=== PATIENT | female | born 1980 | race African-American/Black ===

== ENCOUNTER 2022-07-22 14:55 | Inpatient (IN) | payer OTHER ==
[2022-07-22] MEDS ORDERED: FOLIC ACID INJECTION - 1 MG, THIAMINE HCL 100 MG, MULTIVIT INJECTION ADULT 10 ML in SOD... IVPB ONE (16:18)
[2022-07-22] MEDS ORDERED: LACTATED RINGERS SOLUTION 1000 ML INFUS.BAG IV ONE (16:25)
[2022-07-22 17:14] LABS: VENOUS BASE EXCESS 3.4 mmol/L (-2-2); VENOUS O2 SATURATION 53.8 % (70-80); VENOUS PCO2 49.7 mmHg (38-52); VENOUS PH 7.385 (7.310-7.410)
[2022-07-22 17:32] LABS: BASO % 0.8 % (0-2.0); EOS % 0.4 % (0-4.5); HEMATOCRIT 24.5 % (32.4-45.2); HEMOGLOBIN 8.1 GM/dL (10.7-15.3); LYMPH % 50.4 % (8-40); MCH 27.6 pg (25.7-33.7); MCHC 33.2 g/dl (32.0-36.0); MEAN CELL VOLUME 83.3 fl (80-96); MEAN PLT VOLUME 7.7 fl (7.5-11.1); MONO % 7.2 % (3.8-10.2); NEUT % 41.2 % (42.8-82.8); PLATELET COUNT 254 10^3/uL (134-434); RBC 2.94 M/mm3 (3.60-5.2); RDW 24.3 % (11.6-15.6); WHITE BLOOD COUNT 6.1 K/mm3 (4.0-10.0)
[2022-07-22 17:59] LABS: ACTIVATED PTT 34.5 SECONDS (25.2-36.5); CHLORIDE 97 mmol/L (98-107); INR 1.09 (0.83-1.09); PROTHROMBIN TIME (PATIENT) 12.5 SEC (9.7-13.0); SODIUM 140 mmol/L (136-145)
[2022-07-22 18:01] LABS: CALCIUM 7.9 mg/dL (8.5-10.1)
[2022-07-22 18:02] LABS: ALBUMIN 2.6 g/dl (3.4-5.0); ANION GAP 14 MMOL/L (8-16); CO2 29 mmol/L (21-32); GLUCOSE,RANDOM 93 mg/dL (74-106); MAGNESIUM 1.6 mg/dL (1.8-2.4)
[2022-07-22 18:04] LABS: SGPT/ALT 51 U/L (13-61)
[2022-07-22 18:05] LABS: CREATININE 0.5 mg/dL (0.55-1.3); SGOT/AST 213 U/L (15-37)
[2022-07-22 18:06] LABS: BILIRUBIN,TOTAL 0.6 mg/dL (0.2-1)
[2022-07-22 18:08] LABS: ALK PHOS 138 U/L (45-117)
[2022-07-22] MEDS ORDERED: POTASSIUM CHLORIDE TABS 20 MEQ TABLET.ER (FP) PO ONE ×2 (18:09→18:34)
[2022-07-22] MEDS ORDERED: MAGNESIUM SULF 50% (8.12 MEQ/2 ML-1 GM VIAL) IVPB ONE (18:14)
[2022-07-22] MEDS ORDERED: MAGNESIUM SULF 50% (8.12 MEQ/2 ML-1 GM VIAL) ONE (18:29)
[2022-07-22 18:32] LABS: BLOOD UREA NITROGEN 1.7 mg/dL (7-18)
[2022-07-23 00:04] LABS: RETICULOCYTES 2.98 % (0.5-1.5)
[2022-07-23 00:39] LABS: IRON SERUM 28 ug/dL (50-175); TOTAL IRON BINDING CAPACITY 266 ug/dL (250-450)
[2022-07-23 01:55] VITALS: BMI 16.5
[2022-07-23] MEDS ORDERED: IRON SUCROSE INJECTION 500 MG in SODIUM CHLORIDE 225 ML IVPB ONE (01:59)
[2022-07-23] MEDS ORDERED: IRON SUCROSE INJECTION 300 MG in SODIUM CHLORIDE 235 ML IVPB ONE (02:45)
[2022-07-23] MEDS ORDERED: SERTRALINE HCL 50 MG TABLET (FP) PO ONE (03:03)
[2022-07-23] MEDS ORDERED: MAGNESIUM 2GM/50ML STERILE WATER IVPB IVPB ONE (03:21)
[2022-07-23] MEDS ORDERED: POTASSIUM CHLORIDE ORAL LIQUID 20 MEQ/15 ML PO ONE (03:26)
[2022-07-23] MEDS ORDERED: LORazepam 1 MG TABLET PO PRN (03:27)
[2022-07-23] MEDS ORDERED: FOLIC ACID INJECTION - 1 MG, THIAMINE HCL 100 MG, MULTIVIT INJECTION ADULT 10 ML in SOD... IVPB ONE (03:29)
[2022-07-23] MEDS: LORazepam 1 MG TABLET PO SCH ×2 (04:53→10:12)
[2022-07-23] MEDS: INSULIN SLIDING SCALE (NOVOLOG) 1 VIAL SQ SCH ×4 (06:00→22:05)
[2022-07-23] MEDS ORDERED: INSULIN SLIDING SCALE (NOVOLOG) 1 VIAL SQ SCH (07:00)
[2022-07-23] MEDS ORDERED: THIAMINE HCL 100 MG TABLET (FP) PO SCH (10:00)
[2022-07-23] MEDS: ENOXAPARIN NA (PORCINE) 40 MG/0.4 ML DISP.SYRIN SQ SCH (10:11)
[2022-07-23] MEDS: NICOTINE 7 MG/24 HOURS TOPICAL PATCH TD SCH ×2 (10:12→10:16)
[2022-07-23] MEDS: levETIRAcetam 500 MG TABLET (FP) PO SCH ×2 (10:12→22:04)
[2022-07-23] MEDS: FOLIC ACID 1 MG TABLET (FP) PO SCH (10:12)
[2022-07-23 10:35] LABS: BASO % 1.2 % (0-2.0); EOS % 0.5 % (0-4.5); HEMATOCRIT 20.9 % (32.4-45.2); LYMPH % 22.7 % (8-40); MCH 27.1 pg (25.7-33.7); MCHC 32.3 g/dl (32.0-36.0); MEAN CELL VOLUME 83.9 fl (80-96); NEUT % 67.6 % (42.8-82.8); PLATELET COUNT 195 10^3/uL (134-434); WHITE BLOOD COUNT 4.5 K/mm3 (4.0-10.0)
[2022-07-23 10:48] LABS: CHLORIDE 106 mmol/L (98-107); SODIUM 141 mmol/L (136-145)
[2022-07-23 10:50] LABS: ANION GAP 9 MMOL/L (8-16); CALCIUM 7.5 mg/dL (8.5-10.1); CO2 26 mmol/L (21-32)
[2022-07-23 10:51] LABS: ALBUMIN 2.4 g/dl (3.4-5.0); GLUCOSE,RANDOM 84 mg/dL (74-106); MAGNESIUM 2.3 mg/dL (1.8-2.4)
[2022-07-23 10:53] LABS: SGPT/ALT 45 U/L (13-61)
[2022-07-23 10:54] LABS: CREATININE 0.3 mg/dL (0.55-1.3); HEMOGLOBIN 6.8 GM/dL (10.7-15.3)
[2022-07-23 10:55] LABS: BILIRUBIN,TOTAL 1.4 mg/dL (0.2-1); PHOSPHOROUS 2.6 mg/dL (2.5-4.9); SGOT/AST 213 U/L (15-37)
[2022-07-23 10:56] LABS: ALK PHOS 139 U/L (45-117)
[2022-07-23 10:57] LABS: BLOOD UREA NITROGEN 1.3 mg/dL (7-18)
[2022-07-23] MEDS: THIAMINE HCL 200 MG/2 ML VIAL IVPB SCH ×2 (12:48→22:04)
[2022-07-23] MEDS: DEXTROSE 5%-0.45% SALINE 1,000 ML IV SCH (17:36)
[2022-07-23 21:36] LABS: HEMOGLOBIN 8.8 GM/dL (10.7-15.3); MCH 27.6 pg (25.7-33.7); MEAN CELL VOLUME 83.5 fl (80-96); MEAN PLT VOLUME 7.9 fl (7.5-11.1); PLATELET COUNT 188 10^3/uL (134-434); RBC 3.17 M/mm3 (3.60-5.2); RDW 20.7 % (11.6-15.6)
[2022-07-23 21:38] LABS: HEMATOCRIT 26.5 % (32.4-45.2)
[2022-07-23] MEDS: SERTRALINE HCL 50 MG TABLET (FP) PO SCH (22:04)
[2022-07-24] MEDS ORDERED: LORazepam 1 MG TABLET PO SCH (05:00)
[2022-07-24] MEDS: INSULIN SLIDING SCALE (NOVOLOG) 1 VIAL SQ SCH ×4 (06:32→23:15)
[2022-07-24] MEDS: THIAMINE HCL 200 MG/2 ML VIAL IVPB SCH ×3 (06:32→22:15)
[2022-07-24] MEDS: FOLIC ACID 1 MG TABLET (FP) PO SCH (11:02)
[2022-07-24] MEDS: levETIRAcetam 500 MG TABLET (FP) PO SCH ×2 (11:02→22:41)
[2022-07-24] MEDS: MULTIVITAMINS (DAILY MVI) TABLET (FP) PO SCH (11:03)
[2022-07-24] MEDS: NICOTINE 7 MG/24 HOURS TOPICAL PATCH TD SCH (11:03)
[2022-07-24 14:20] LABS: HEMATOCRIT 28.3 % (32.4-45.2); HEMOGLOBIN 9.4 GM/dL (10.7-15.3); MCHC 33.3 g/dl (32.0-36.0); MEAN CELL VOLUME 84.1 fl (80-96); MEAN PLT VOLUME 8.3 fl (7.5-11.1); PLATELET COUNT 199 10^3/uL (134-434); RBC 3.37 M/mm3 (3.60-5.2); RDW 21.2 % (11.6-15.6); WHITE BLOOD COUNT 5.4 K/mm3 (4.0-10.0)
[2022-07-24 14:47] LABS: CHLORIDE 102 mmol/L (98-107); SODIUM 138 mmol/L (136-145)
[2022-07-24 14:50] LABS: BLOOD UREA NITROGEN < 1.0 mg/dL (7-18)
[2022-07-24 14:51] LABS: ANION GAP 10 MMOL/L (8-16); CO2 26 mmol/L (21-32); GLUCOSE,RANDOM 101 mg/dL (74-106)
[2022-07-24 14:52] LABS: ALBUMIN 2.3 g/dl (3.4-5.0); CALCIUM 7.5 mg/dL (8.5-10.1)
[2022-07-24 14:53] LABS: MAGNESIUM 1.3 mg/dL (1.8-2.4)
[2022-07-24 14:54] LABS: CREATININE 0.3 mg/dL (0.55-1.3); PHOSPHOROUS 1.8 mg/dL (2.5-4.9)
[2022-07-24 14:55] LABS: BILIRUBIN,DIRECT 0.4 mg/dL (0.0-0.2)
[2022-07-24 14:57] LABS: BILIRUBIN,TOTAL 1.6 mg/dL (0.2-1)
[2022-07-24] MEDS ORDERED: POTASSIUM CHLORIDE TABS 20 MEQ TABLET.ER (FP) PO ONE (15:04)
[2022-07-24] MEDS ORDERED: MAGNESIUM OXIDE 400 MG TABLET (FP) PO ONE (15:05)
[2022-07-24] MEDS: POTASSIUM PHOSPHATE 30 MM in SODIUM CHLORIDE 500 ML IVPB ONE ×2 (16:44→17:03)
[2022-07-24] MEDS: DEXTROSE 5%-0.45% SALINE 1,000 ML IV SCH (17:09)
[2022-07-24] MEDS ORDERED: ACETAMINOPHEN 1000 MG/100 ML BAG IVPB ONE (22:22)
[2022-07-24] MEDS: SERTRALINE HCL 50 MG TABLET (FP) PO SCH (22:41)
[2022-07-24 23:54] LABS: CHLORIDE 102 mmol/L (98-107); SODIUM 138 mmol/L (136-145)
[2022-07-24 23:56] LABS: GLUCOSE,RANDOM 92 mg/dL (74-106)
[2022-07-24 23:57] LABS: ALBUMIN 2.2 g/dl (3.4-5.0); BLOOD UREA NITROGEN < 1.0 mg/dL (7-18); CALCIUM 7.2 mg/dL (8.5-10.1); CO2 27 mmol/L (21-32); MAGNESIUM 1.2 mg/dL (1.8-2.4)
[2022-07-25] LABS: CREATININE 0.3 mg/dL (0.55-1.3); PHOSPHOROUS 2.5 mg/dL (2.5-4.9); SGOT/AST 150 U/L (15-37); SGPT/ALT 40 U/L (13-61)
[2022-07-25] MEDS ORDERED: LORazepam 0.5 MG TABLET PO PRN ×2
[2022-07-25 00:02] LABS: BILIRUBIN,TOTAL 1.4 mg/dL (0.2-1); TOT PROT 5.8 g/dl (6.4-8.2)
[2022-07-25 00:03] LABS: ALK PHOS 135 U/L (45-117)
[2022-07-25 00:20] LABS: ANION GAP 9 MMOL/L (8-16)
[2022-07-25] MEDS ORDERED: POTASSIUM CHLORIDE ORAL LIQUID 20 MEQ/15 ML PO ONE (00:36)
[2022-07-25] MEDS ORDERED: POTASSIUM CHLORIDE TABS 20 MEQ TABLET.ER (FP) PO ONE (00:36)
[2022-07-25] MEDS: MAGNESIUM SULFATE IN WATER 2 GM/50 ML IVPB IVPB SCH ×4 (00:54→13:56)
[2022-07-25] MEDS ORDERED: POTASSIUM PHOSPHATE 30 MM in SODIUM CHLORIDE 500 ML IVPB ONE (02:44)
[2022-07-25] MEDS ORDERED: LORazepam 0.5 MG TABLET PO SCH (05:00)
[2022-07-25] MEDS: THIAMINE HCL 200 MG/2 ML VIAL IVPB SCH ×3 (05:25→21:44)
[2022-07-25] MEDS: INSULIN SLIDING SCALE (NOVOLOG) 1 VIAL SQ SCH ×4 (06:31→22:26)
[2022-07-25] MEDS ORDERED: KCL 10 MEQ IVPB 10 MEQ/100 ML INFUS.BAG IVPB SCH (08:00)
[2022-07-25] MEDS: ENOXAPARIN NA (PORCINE) 40 MG/0.4 ML DISP.SYRIN SQ SCH (11:34)
[2022-07-25] MEDS: FOLIC ACID 1 MG TABLET (FP) PO SCH (11:35)
[2022-07-25] MEDS: MULTIVITAMINS (DAILY MVI) TABLET (FP) PO SCH (11:35)
[2022-07-25] MEDS: NICOTINE 7 MG/24 HOURS TOPICAL PATCH TD SCH (11:35)
[2022-07-25] MEDS: levETIRAcetam 500 MG TABLET (FP) PO SCH ×2 (11:35→21:43)
[2022-07-25 12:21] LABS: CHLORIDE 108 mmol/L (98-107); SODIUM 140 mmol/L (136-145)
[2022-07-25 12:30] LABS: ALBUMIN 1.9 g/dl (3.4-5.0); ANION GAP 9 MMOL/L (8-16); BLOOD UREA NITROGEN < 1.0 mg/dL (7-18); CO2 23 mmol/L (21-32); MAGNESIUM 2.2 mg/dL (1.8-2.4)
[2022-07-25 12:31] LABS: GLUCOSE,RANDOM 106 mg/dL (74-106)
[2022-07-25 12:32] LABS: SGPT/ALT 38 U/L (13-61)
[2022-07-25 12:33] LABS: CREATININE 0.3 mg/dL (0.55-1.3); SGOT/AST 134 U/L (15-37)
[2022-07-25 12:34] LABS: BILIRUBIN,TOTAL 0.9 mg/dL (0.2-1); TOT PROT 5.3 g/dl (6.4-8.2)
[2022-07-25 12:36] LABS: ALK PHOS 119 U/L (45-117)
[2022-07-25 12:41] LABS: HEMATOCRIT 23.3 % (32.4-45.2); HEMOGLOBIN 7.9 GM/dL (10.7-15.3); MCH 28.5 pg (25.7-33.7); MCHC 34.1 g/dl (32.0-36.0); MEAN CELL VOLUME 83.8 fl (80-96); MEAN PLT VOLUME 7.9 fl (7.5-11.1); PLATELET COUNT 194 10^3/uL (134-434); RBC 2.78 M/mm3 (3.60-5.2); RDW 21.7 % (11.6-15.6); WHITE BLOOD COUNT 4.6 K/mm3 (4.0-10.0)
[2022-07-25] MEDS: DEXTROSE 5%-0.45% SALINE 1,000 ML IV SCH (14:05)
[2022-07-25 19:50] LABS: CHLORIDE 105 mmol/L (98-107); SODIUM 138 mmol/L (136-145)
[2022-07-25 19:51] LABS: CALCIUM 7.5 mg/dL (8.5-10.1)
[2022-07-25 19:52] LABS: ANION GAP 10 MMOL/L (8-16); BLOOD UREA NITROGEN < 1.0 mg/dL (7-18); CO2 23 mmol/L (21-32)
[2022-07-25 19:53] LABS: GLUCOSE,RANDOM 85 mg/dL (74-106); MAGNESIUM 2.3 mg/dL (1.8-2.4)
[2022-07-25 19:55] LABS: PHOSPHOROUS 2.6 mg/dL (2.5-4.9)
[2022-07-25 19:56] LABS: CREATININE 0.3 mg/dL (0.55-1.3)
[2022-07-25] MEDS: SERTRALINE HCL 50 MG TABLET (FP) PO SCH (21:43)
[2022-07-26] MEDS ORDERED: LORazepam 0.5 MG TABLET PO ONE (05:00)
[2022-07-26] MEDS: THIAMINE HCL 200 MG/2 ML VIAL IVPB SCH ×2 (05:28→15:04)
[2022-07-26] MEDS: INSULIN SLIDING SCALE (NOVOLOG) 1 VIAL SQ SCH ×4 (06:14→22:18)
[2022-07-26 09:29] LABS: BASO % 0.7 % (0-2.0); EOS % 0.8 % (0-4.5); HEMATOCRIT 23.3 % (32.4-45.2); HEMOGLOBIN 7.9 GM/dL (10.7-15.3); LYMPH % 27.9 % (8-40); MCH 28.7 pg (25.7-33.7); MCHC 33.8 g/dl (32.0-36.0); MEAN CELL VOLUME 84.9 fl (80-96); MEAN PLT VOLUME 7.7 fl (7.5-11.1); MONO % 8.2 % (3.8-10.2); NEUT % 62.4 % (42.8-82.8); PLATELET COUNT 200 10^3/uL (134-434); RBC 2.74 M/mm3 (3.60-5.2); RDW 22.1 % (11.6-15.6); WHITE BLOOD COUNT 4.7 K/mm3 (4.0-10.0)
[2022-07-26 09:49] LABS: CHLORIDE 104 mmol/L (98-107); SODIUM 138 mmol/L (136-145)
[2022-07-26 10:00] LABS: CALCIUM 7.5 mg/dL (8.5-10.1)
[2022-07-26 10:01] LABS: ANION GAP 9 MMOL/L (8-16); BLOOD UREA NITROGEN < 1.0 mg/dL (7-18); CO2 26 mmol/L (21-32); GLUCOSE,RANDOM 86 mg/dL (74-106); MAGNESIUM 1.8 mg/dL (1.8-2.4)
[2022-07-26 10:04] LABS: CREATININE 0.3 mg/dL (0.55-1.3); PHOSPHOROUS 2.5 mg/dL (2.5-4.9)
[2022-07-26 10:26] LABS: ANISOCYTOSIS 0; MACROCYTOSIS 0; TARGET CELLS 1+
[2022-07-26] MEDS: FOLIC ACID 1 MG TABLET (FP) PO SCH (11:08)
[2022-07-26] MEDS: levETIRAcetam 500 MG TABLET (FP) PO SCH ×2 (11:08→22:12)
[2022-07-26] MEDS: MULTIVITAMINS (DAILY MVI) TABLET (FP) PO SCH (11:08)
[2022-07-26] MEDS: NICOTINE 7 MG/24 HOURS TOPICAL PATCH TD SCH (11:08)
[2022-07-26] MEDS: ENOXAPARIN NA (PORCINE) 40 MG/0.4 ML DISP.SYRIN SQ SCH (11:08)
[2022-07-26] MEDS: DEXTROSE 5%-0.45% SALINE 1,000 ML IV SCH (12:03)
[2022-07-26] MEDS ORDERED: MAGNESIUM SULF 50% (8.12 MEQ/2 ML-1 GM VIAL) IVPB ONE ×2 (12:40→15:45)
[2022-07-26] MEDS ORDERED: POTASSIUM PHOSPHATE 30 MM in DEXTROSE 5%-WATER - 500 ML IVPB ONE (13:15)
[2022-07-26] MEDS ORDERED: INSULIN (NOVOLOG) ASPART 100 UNITS/ML 10ML VIAL ONE (17:59)
[2022-07-26] MEDS: SERTRALINE HCL 50 MG TABLET (FP) PO SCH (22:12)
[2022-07-26] MEDS: BANATROL PLUS POWDER PACKET PO SCH (22:12)
[2022-07-26 23:29] LABS: CHLORIDE 105 mmol/L (98-107); SODIUM 138 mmol/L (136-145)
[2022-07-26 23:32] LABS: ANION GAP 11 MMOL/L (8-16); BLOOD UREA NITROGEN < 1.0 mg/dL (7-18); CALCIUM 7.6 mg/dL (8.5-10.1); CO2 23 mmol/L (21-32)
[2022-07-26 23:33] LABS: GLUCOSE,RANDOM 102 mg/dL (74-106)
[2022-07-26 23:36] LABS: CREATININE 0.3 mg/dL (0.55-1.3); PHOSPHOROUS 3.9 mg/dL (2.5-4.9)
[2022-07-27] MEDS: BANATROL PLUS POWDER PACKET PO SCH ×3 (05:56→22:22)
[2022-07-27] MEDS: DEXTROSE 5%-0.45% SALINE 1,000 ML IV SCH ×3 (05:56→22:27)
[2022-07-27] MEDS: INSULIN SLIDING SCALE (NOVOLOG) 1 VIAL SQ SCH ×4 (06:14→22:23)
[2022-07-27 08:08] LABS: EOS % 0.8 % (0-4.5); HEMATOCRIT 22.7 % (32.4-45.2); HEMOGLOBIN 7.6 GM/dL (10.7-15.3); LYMPH % 24.9 % (8-40); MCH 28.3 pg (25.7-33.7); MCHC 33.6 g/dl (32.0-36.0); MEAN CELL VOLUME 84.4 fl (80-96); MEAN PLT VOLUME 8.1 fl (7.5-11.1); MONO % 8.6 % (3.8-10.2); NEUT % 64.7 % (42.8-82.8); PLATELET COUNT 219 10^3/uL (134-434); RBC 2.69 M/mm3 (3.60-5.2); RDW 22.8 % (11.6-15.6); WHITE BLOOD COUNT 4.5 K/mm3 (4.0-10.0)
[2022-07-27 08:17] LABS: CHLORIDE 106 mmol/L (98-107); SODIUM 139 mmol/L (136-145)
[2022-07-27 08:19] LABS: ANION GAP 8 MMOL/L (8-16); BLOOD UREA NITROGEN < 1.0 mg/dL (7-18); CALCIUM 7.8 mg/dL (8.5-10.1); CO2 25 mmol/L (21-32); GLUCOSE,RANDOM 106 mg/dL (74-106); MAGNESIUM 1.5 mg/dL (1.8-2.4)
[2022-07-27 08:22] LABS: CREATININE 0.3 mg/dL (0.55-1.3)
[2022-07-27 08:23] LABS: PHOSPHOROUS 3.1 mg/dL (2.5-4.9)
[2022-07-27] MEDS ORDERED: INSULIN (NOVOLOG) ASPART 100 UNITS/ML 10ML VIAL ONE (09:04)
[2022-07-27] MEDS: ENOXAPARIN NA (PORCINE) 40 MG/0.4 ML DISP.SYRIN SQ SCH (10:01)
[2022-07-27] MEDS: FOLIC ACID 1 MG TABLET (FP) PO SCH (10:01)
[2022-07-27] MEDS: THIAMINE HCL 200 MG/2 ML VIAL IVPB SCH (10:02)
[2022-07-27] MEDS: levETIRAcetam 500 MG TABLET (FP) PO SCH ×2 (10:02→22:22)
[2022-07-27] MEDS: MULTIVITAMINS (DAILY MVI) TABLET (FP) PO SCH (10:02)
[2022-07-27] MEDS: NICOTINE 7 MG/24 HOURS TOPICAL PATCH TD SCH (10:02)
[2022-07-27] MEDS ORDERED: MAGNESIUM SULFATE IN WATER 2 GM/50 ML IVPB IVPB ONE (12:00)
[2022-07-27 18:16] LABS: BASO % 0.7 % (0-2.0); EOS % 0.3 % (0-4.5); HEMATOCRIT 23.6 % (32.4-45.2); HEMOGLOBIN 7.9 GM/dL (10.7-15.3); MCH 28.7 pg (25.7-33.7); MCHC 33.6 g/dl (32.0-36.0); MEAN CELL VOLUME 85.5 fl (80-96); MEAN PLT VOLUME 7.2 fl (7.5-11.1); MONO % 9.4 % (3.8-10.2); NEUT % 62.6 % (42.8-82.8); PLATELET COUNT 222 10^3/uL (134-434); RBC 2.76 M/mm3 (3.60-5.2); RDW 22.8 % (11.6-15.6); WHITE BLOOD COUNT 4.4 K/mm3 (4.0-10.0)
[2022-07-27 18:18] LABS: PH,URINE 6.5 (5.0-8.0); URINE APPEARANCE CLEAR; URINE BILIRUBIN NEGATIVE (NEGATIVE); URINE COLOR YELLOW; URINE GLUCOSE (UA) NEGATIVE (NEGATIVE); URINE KETONE NEGATIVE (NEGATIVE); URINE LEUK ESTERASE NEGATIVE (NEGATIVE); URINE NITRITE NEGATIVE (NEGATIVE); URINE PROTEIN NEGATIVE (NEGATIVE); URINE UROBILINOGEN 0.2 mg/dL (0.2-1.0)
[2022-07-27 18:33] LABS: CHLORIDE 104 mmol/L (98-107); SODIUM 138 mmol/L (136-145)
[2022-07-27 18:34] LABS: CALCIUM 8.1 mg/dL (8.5-10.1)
[2022-07-27 18:35] LABS: ANION GAP 10 MMOL/L (8-16); BLOOD UREA NITROGEN < 1.0 mg/dL (7-18); CO2 24 mmol/L (21-32); GLUCOSE,RANDOM 103 mg/dL (74-106)
[2022-07-27 18:38] LABS: CREATININE 0.3 mg/dL (0.55-1.3); PHOSPHOROUS 2.4 mg/dL (2.5-4.9)
[2022-07-27] MEDS ORDERED: POTASSIUM PHOSPHATE 30 MM in DEXTROSE 5%-WATER - 500 ML IVPB ONE (19:44)
[2022-07-27] MEDS: SERTRALINE HCL 50 MG TABLET (FP) PO SCH (22:22)
[2022-07-28] MEDS: BANATROL PLUS POWDER PACKET PO SCH ×3 (05:26→21:25)
[2022-07-28] MEDS: INSULIN SLIDING SCALE (NOVOLOG) 1 VIAL SQ SCH ×4 (06:11→21:24)
[2022-07-28 09:07] LABS: BASO % 0.7 % (0-2.0); EOS % 0.8 % (0-4.5); HEMATOCRIT 23.3 % (32.4-45.2); HEMOGLOBIN 7.9 GM/dL (10.7-15.3); LYMPH % 20.5 % (8-40); MCHC 33.8 g/dl (32.0-36.0); MEAN CELL VOLUME 85.7 fl (80-96); MEAN PLT VOLUME 7.6 fl (7.5-11.1); PLATELET COUNT 229 10^3/uL (134-434); RBC 2.72 M/mm3 (3.60-5.2); RDW 23.4 % (11.6-15.6)
[2022-07-28 09:40] LABS: CHLORIDE 104 mmol/L (98-107); SODIUM 139 mmol/L (136-145)
[2022-07-28 09:43] LABS: ANION GAP 10 MMOL/L (8-16); BLOOD UREA NITROGEN < 1.0 mg/dL (7-18); CALCIUM 7.8 mg/dL (8.5-10.1); CO2 26 mmol/L (21-32); GLUCOSE,RANDOM 111 mg/dL (74-106)
[2022-07-28 09:44] LABS: MAGNESIUM 1.5 mg/dL (1.8-2.4)
[2022-07-28 09:47] LABS: CREATININE 0.3 mg/dL (0.55-1.3)
[2022-07-28] MEDS: ENOXAPARIN NA (PORCINE) 40 MG/0.4 ML DISP.SYRIN SQ SCH (10:31)
[2022-07-28] MEDS: MULTIVITAMINS (DAILY MVI) TABLET (FP) PO SCH (10:32)
[2022-07-28] MEDS: THIAMINE HCL 200 MG/2 ML VIAL IVPB SCH (10:32)
[2022-07-28] MEDS: NICOTINE 7 MG/24 HOURS TOPICAL PATCH TD SCH ×2 (10:32→10:43)
[2022-07-28] MEDS: levETIRAcetam 500 MG TABLET (FP) PO SCH ×2 (10:32→21:25)
[2022-07-28] MEDS: FOLIC ACID 1 MG TABLET (FP) PO SCH (10:32)
[2022-07-28] MEDS ORDERED: POTASSIUM CHLORIDE TABS 20 MEQ TABLET.ER (FP) PO ONE (14:07)
[2022-07-28] MEDS ORDERED: MAGNESIUM SULF 50% (8.12 MEQ/2 ML-1 GM VIAL) IVPB ONE (14:08)
[2022-07-28] MEDS: AMINO ACIDS 4.25%/D5W 1,000 ML IV SCH (16:02)
[2022-07-28 18:51] LABS: CHLORIDE 104 mmol/L (98-107); SODIUM 138 mmol/L (136-145)
[2022-07-28 18:52] LABS: CALCIUM 7.9 mg/dL (8.5-10.1)
[2022-07-28 18:54] LABS: ANION GAP 9 MMOL/L (8-16); BLOOD UREA NITROGEN < 1.0 mg/dL (7-18); CO2 25 mmol/L (21-32); GLUCOSE,RANDOM 110 mg/dL (74-106); MAGNESIUM 2.2 mg/dL (1.8-2.4)
[2022-07-28 18:56] LABS: CREATININE 0.4 mg/dL (0.55-1.3); PHOSPHOROUS 2.3 mg/dL (2.5-4.9)
[2022-07-28] MEDS: SERTRALINE HCL 50 MG TABLET (FP) PO SCH (21:25)
[2022-07-29] MEDS: AMINO ACIDS 4.25%/D5W 1,000 ML IV SCH ×3 (02:40→17:04)
[2022-07-29] MEDS: BANATROL PLUS POWDER PACKET PO SCH ×3 (06:17→22:04)
[2022-07-29] MEDS: INSULIN SLIDING SCALE (NOVOLOG) 1 VIAL SQ SCH ×4 (06:47→22:05)
[2022-07-29] MEDS ORDERED: POTASSIUM PHOSPHATE 30 MM in DEXTROSE 5%-WATER - 500 ML IVPB ONE ×2 (07:51→13:30)
[2022-07-29] MEDS ORDERED: IRON SUCROSE INJECTION 200 MG in SODIUM CHLORIDE 90 ML IVPB ONE (08:00)
[2022-07-29 09:32] LABS: BASO % 1.4 % (0-2.0); EOS % 1.3 % (0-4.5); HEMATOCRIT 23.9 % (32.4-45.2); HEMOGLOBIN 8.1 GM/dL (10.7-15.3); LYMPH % 23.5 % (8-40); MCH 29.3 pg (25.7-33.7); MCHC 33.9 g/dl (32.0-36.0); MEAN CELL VOLUME 86.4 fl (80-96); MEAN PLT VOLUME 7.7 fl (7.5-11.1); MONO % 12.9 % (3.8-10.2); NEUT % 60.9 % (42.8-82.8); PLATELET COUNT 254 10^3/uL (134-434); RBC 2.76 M/mm3 (3.60-5.2); RDW 23.1 % (11.6-15.6); WHITE BLOOD COUNT 4.8 K/mm3 (4.0-10.0)
[2022-07-29 09:35] LABS: CHLORIDE 105 mmol/L (98-107); SODIUM 138 mmol/L (136-145)
[2022-07-29 09:44] LABS: ANION GAP 7 MMOL/L (8-16); CO2 25 mmol/L (21-32); GLUCOSE,RANDOM 110 mg/dL (74-106); MAGNESIUM 1.5 mg/dL (1.8-2.4)
[2022-07-29 09:46] LABS: PHOSPHOROUS 2.2 mg/dL (2.5-4.9)
[2022-07-29 09:47] LABS: CREATININE 0.3 mg/dL (0.55-1.3)
[2022-07-29 09:53] LABS: BLOOD UREA NITROGEN 1.9 mg/dL (7-18)
[2022-07-29] MEDS: ENOXAPARIN NA (PORCINE) 40 MG/0.4 ML DISP.SYRIN SQ SCH (10:02)
[2022-07-29] MEDS: NICOTINE 7 MG/24 HOURS TOPICAL PATCH TD SCH (10:03)
[2022-07-29] MEDS: FOLIC ACID 1 MG TABLET (FP) PO SCH (10:03)
[2022-07-29] MEDS: levETIRAcetam 500 MG TABLET (FP) PO SCH ×2 (10:03→22:05)
[2022-07-29] MEDS: MULTIVITAMINS (DAILY MVI) TABLET (FP) PO SCH (10:03)
[2022-07-29] MEDS: THIAMINE HCL 200 MG/2 ML VIAL IVPB SCH (10:04)
[2022-07-29 10:24] LABS: ANISOCYTOSIS 2+; MACROCYTOSIS 0; OVALOCYTE 1+
[2022-07-29] MEDS ORDERED: MAGNESIUM SULF 50% (8.12 MEQ/2 ML-1 GM VIAL) IVPB ONE ×2 (12:50→13:30)
[2022-07-29] MEDS ORDERED: POTASSIUM PHOSPHATE 30 MM in SODIUM CHLORIDE 500 ML IVPB ONE (12:50)
[2022-07-29] MEDS ORDERED: INSULIN (NOVOLOG) ASPART 100 UNITS/ML 10ML VIAL ONE (21:26)
[2022-07-29] MEDS: SERTRALINE HCL 50 MG TABLET (FP) PO SCH (22:05)
[2022-07-30] MEDS: BANATROL PLUS POWDER PACKET PO SCH ×3 (06:18→21:56)
[2022-07-30] MEDS: INSULIN SLIDING SCALE (NOVOLOG) 1 VIAL SQ SCH ×4 (06:19→22:24)
[2022-07-30] MEDS: AMINO ACIDS 4.25%/D5W 1,000 ML IV SCH ×2 (07:14→21:56)
[2022-07-30 09:10] LABS: BASO % 0.6 % (0-2.0); EOS % 0.8 % (0-4.5); HEMATOCRIT 23.6 % (32.4-45.2); HEMOGLOBIN 7.7 GM/dL (10.7-15.3); LYMPH % 24.2 % (8-40); MCH 28.4 pg (25.7-33.7); MCHC 32.9 g/dl (32.0-36.0); MEAN CELL VOLUME 86.3 fl (80-96); MEAN PLT VOLUME 8.3 fl (7.5-11.1); MONO % 11.4 % (3.8-10.2); PLATELET COUNT 294 10^3/uL (134-434); RBC 2.73 M/mm3 (3.60-5.2); RDW 22.9 % (11.6-15.6); WHITE BLOOD COUNT 4.6 K/mm3 (4.0-10.0)
[2022-07-30 09:32] LABS: BLOOD UREA NITROGEN 3.5 mg/dL (7-18); CALCIUM 7.9 mg/dL (8.5-10.1); MAGNESIUM 1.8 mg/dL (1.8-2.4)
[2022-07-30 09:35] LABS: CREATININE 0.2 mg/dL (0.55-1.3); PHOSPHOROUS 2.7 mg/dL (2.5-4.9)
[2022-07-30] MEDS: MULTIVITAMINS (DAILY MVI) TABLET (FP) PO SCH (10:32)
[2022-07-30] MEDS: ENOXAPARIN NA (PORCINE) 40 MG/0.4 ML DISP.SYRIN SQ SCH (10:32)
[2022-07-30] MEDS: levETIRAcetam 500 MG TABLET (FP) PO SCH ×2 (10:32→21:55)
[2022-07-30] MEDS: FOLIC ACID 1 MG TABLET (FP) PO SCH (10:33)
[2022-07-30] MEDS: NICOTINE 7 MG/24 HOURS TOPICAL PATCH TD SCH (10:33)
[2022-07-30] MEDS: THIAMINE HCL 200 MG/2 ML VIAL IVPB SCH (10:33)
[2022-07-30] MEDS ORDERED: POTASSIUM CHLORIDE ORAL LIQUID 20 MEQ/15 ML PO ONE (13:22)
[2022-07-30] MEDS ORDERED: LOPERAMIDE HCL 2 MG CAPSULE PO PRN (17:23)
[2022-07-30] MEDS ORDERED: IRON SUCROSE INJECTION 100 MG in SODIUM CHLORIDE 95 ML IVPB ONE (19:00)
[2022-07-30 21:43] LABS: MAGNESIUM 1.4 mg/dL (1.8-2.4)
[2022-07-30 21:46] LABS: PHOSPHOROUS 1.4 mg/dL (2.5-4.9)
[2022-07-30] MEDS ORDERED: NAPH,MB-DB/K PH,MBDB POWDER PACKET PO ONE (21:55)
[2022-07-30] MEDS: SERTRALINE HCL 50 MG TABLET (FP) PO SCH (21:55)
[2022-07-30] MEDS ORDERED: MAGNESIUM 2GM/50ML STERILE WATER IVPB IVPB ONE (22:15)
[2022-07-31] MEDS: AMINO ACIDS 4.25%/D5W 1,000 ML IV SCH ×2 (04:28→17:22)
[2022-07-31] MEDS: BANATROL PLUS POWDER PACKET PO SCH ×3 (06:20→23:12)
[2022-07-31] MEDS: INSULIN SLIDING SCALE (NOVOLOG) 1 VIAL SQ SCH ×4 (06:32→22:28)
[2022-07-31 09:03] LABS: BASO % 2.8 % (0-2.0); EOS % 0.7 % (0-4.5); HEMATOCRIT 24.8 % (32.4-45.2); HEMOGLOBIN 7.9 GM/dL (10.7-15.3); LYMPH % 32.3 % (8-40); MCH 28.2 pg (25.7-33.7); MCHC 31.7 g/dl (32.0-36.0); MEAN PLT VOLUME 8.1 fl (7.5-11.1); MONO % 9.3 % (3.8-10.2); NEUT % 54.9 % (42.8-82.8); PLATELET COUNT 296 10^3/uL (134-434); RBC 2.78 M/mm3 (3.60-5.2); WHITE BLOOD COUNT 4.7 K/mm3 (4.0-10.0)
[2022-07-31 09:25] LABS: CALCIUM 8.3 mg/dL (8.5-10.1)
[2022-07-31 09:26] LABS: ALBUMIN 2.1 g/dl (3.4-5.0); BLOOD UREA NITROGEN 3.9 mg/dL (7-18); MAGNESIUM 1.8 mg/dL (1.8-2.4)
[2022-07-31 09:29] LABS: CREATININE 0.2 mg/dL (0.55-1.3)
[2022-07-31] MEDS ORDERED: IRON SUCROSE INJECTION 100 MG in SODIUM CHLORIDE 95 ML IVPB ONE (09:30)
[2022-07-31 09:31] LABS: BILIRUBIN,TOTAL 0.5 mg/dL (0.2-1); TOT PROT 5.7 g/dl (6.4-8.2)
[2022-07-31] MEDS: ENOXAPARIN NA (PORCINE) 40 MG/0.4 ML DISP.SYRIN SQ SCH (11:30)
[2022-07-31] MEDS: NICOTINE 7 MG/24 HOURS TOPICAL PATCH TD SCH (11:31)
[2022-07-31] MEDS: FOLIC ACID 1 MG TABLET (FP) PO SCH (11:31)
[2022-07-31] MEDS: THIAMINE HCL 200 MG/2 ML VIAL IVPB SCH (11:31)
[2022-07-31] MEDS: levETIRAcetam 500 MG TABLET (FP) PO SCH ×2 (11:31→22:28)
[2022-07-31] MEDS: MULTIVITAMINS (DAILY MVI) TABLET (FP) PO SCH (11:31)
[2022-07-31] MEDS ORDERED: POTASSIUM PHOSPHATE 30 MM in DEXTROSE 5%-WATER - 500 ML IVPB ONE (13:30)
[2022-07-31] MEDS: SERTRALINE HCL 50 MG TABLET (FP) PO SCH (22:27)
[2022-08-01] MEDS: AMINO ACIDS 4.25%/D5W 1,000 ML IV SCH ×2 (02:53→15:37)
[2022-08-01] MEDS: BANATROL PLUS POWDER PACKET PO SCH ×3 (06:30→21:16)
[2022-08-01] MEDS: INSULIN SLIDING SCALE (NOVOLOG) 1 VIAL SQ SCH ×4 (06:40→21:25)
[2022-08-01 09:42] LABS: HEMATOCRIT 25.9 % (32.4-45.2); HEMOGLOBIN 8.4 GM/dL (10.7-15.3); MCH 28.3 pg (25.7-33.7); MCHC 32.3 g/dl (32.0-36.0); MEAN CELL VOLUME 87.7 fl (80-96); MEAN PLT VOLUME 8.2 fl (7.5-11.1); PLATELET COUNT 364 10^3/uL (134-434); RBC 2.96 M/mm3 (3.60-5.2); RDW 22.9 % (11.6-15.6); WHITE BLOOD COUNT 4.8 K/mm3 (4.0-10.0)
[2022-08-01 10:04] LABS: MAGNESIUM 1.6 mg/dL (1.8-2.4)
[2022-08-01] MEDS: levETIRAcetam 500 MG TABLET (FP) PO SCH ×2 (10:04→21:16)
[2022-08-01] MEDS: FOLIC ACID 1 MG TABLET (FP) PO SCH (10:05)
[2022-08-01] MEDS: NICOTINE 7 MG/24 HOURS TOPICAL PATCH TD SCH (10:05)
[2022-08-01] MEDS: MULTIVITAMINS (DAILY MVI) TABLET (FP) PO SCH (10:05)
[2022-08-01 10:07] LABS: PHOSPHOROUS 3.7 mg/dL (2.5-4.9)
[2022-08-01] MEDS: THIAMINE HCL 100 MG TABLET (FP) PO SCH (10:08)
[2022-08-01] MEDS: MIRTAZAPINE 15 MG TABLET (FP) PO SCH (10:08)
[2022-08-01 10:33] LABS: ANISOCYTOSIS 2+; MACROCYTOSIS 1+
[2022-08-01] MEDS ORDERED: MAGNESIUM 2GM/50ML STERILE WATER IVPB IVPB ONE (13:23)
[2022-08-01] MEDS ORDERED: MAGNESIUM SULF 50% (8.12 MEQ/2 ML-1 GM VIAL) IVPB ONE (15:57)
[2022-08-01] MEDS ORDERED: POTASSIUM PHOSPHATE 15 MM in SODIUM CHLORIDE 250 ML IVPB ONE (15:57)
[2022-08-01 18:42] LABS: BASO % 1.8 % (0-2.0); EOS % 0.6 % (0-4.5); HEMOGLOBIN 8.9 GM/dL (10.7-15.3); LYMPH % 28.1 % (8-40); MCH 28.9 pg (25.7-33.7); MEAN CELL VOLUME 87.7 fl (80-96); MONO % 11.9 % (3.8-10.2); NEUT % 57.6 % (42.8-82.8); PLATELET COUNT 398 10^3/uL (134-434); RBC 3.08 M/mm3 (3.60-5.2); RDW 23.4 % (11.6-15.6); WHITE BLOOD COUNT 5.8 K/mm3 (4.0-10.0)
[2022-08-01 19:03] LABS: CALCIUM 9.3 mg/dL (8.5-10.1); MAGNESIUM 2.1 mg/dL (1.8-2.4)
[2022-08-01 19:06] LABS: CREATININE 0.4 mg/dL (0.55-1.3); PHOSPHOROUS 2.5 mg/dL (2.5-4.9)
[2022-08-01 19:07] LABS: TOT PROT 6.5 g/dl (6.4-8.2)
[2022-08-01 19:08] LABS: BILIRUBIN,TOTAL 0.4 mg/dL (0.2-1)
[2022-08-01 19:23] LABS: ALBUMIN 2.6 g/dl (3.4-5.0)
[2022-08-01] MEDS ORDERED: POTASSIUM CHLORIDE TABS 10 MEQ TABLET.ER (FP) PO ONE (19:33)
[2022-08-01] MEDS: SERTRALINE HCL 50 MG TABLET (FP) PO SCH (21:16)
[2022-08-01] MEDS ORDERED: POTASSIUM CHLORIDE TABS 20 MEQ TABLET.ER (FP) PO ONE (21:33)
[2022-08-02] MEDS: AMINO ACIDS 4.25%/D5W 1,000 ML IV SCH (03:30)
[2022-08-02] MEDS: BANATROL PLUS POWDER PACKET PO SCH ×3 (06:27→22:50)
[2022-08-02] MEDS: INSULIN SLIDING SCALE (NOVOLOG) 1 VIAL SQ SCH ×4 (06:49→22:50)
[2022-08-02 09:13] LABS: BASO % 1.6 % (0-2.0); EOS % 1.2 % (0-4.5); HEMOGLOBIN 8.4 GM/dL (10.7-15.3); LYMPH % 29.5 % (8-40); MCH 28.6 pg (25.7-33.7); MCHC 32.2 g/dl (32.0-36.0); NEUT % 55.7 % (42.8-82.8); PLATELET COUNT 396 10^3/uL (134-434); RBC 2.93 M/mm3 (3.60-5.2); RDW 23.4 % (11.6-15.6); WHITE BLOOD COUNT 5.4 K/mm3 (4.0-10.0)
[2022-08-02] MEDS: THIAMINE HCL 100 MG TABLET (FP) PO SCH (09:43)
[2022-08-02] MEDS: MIRTAZAPINE 15 MG TABLET (FP) PO SCH (09:43)
[2022-08-02] MEDS: NICOTINE 7 MG/24 HOURS TOPICAL PATCH TD SCH (09:43)
[2022-08-02] MEDS: MULTIVITAMINS (DAILY MVI) TABLET (FP) PO SCH (09:43)
[2022-08-02] MEDS: levETIRAcetam 500 MG TABLET (FP) PO SCH ×2 (09:43→22:50)
[2022-08-02] MEDS: FOLIC ACID 1 MG TABLET (FP) PO SCH (09:43)
[2022-08-02 09:55] LABS: CALCIUM 8.5 mg/dL (8.5-10.1)
[2022-08-02 09:56] LABS: ALBUMIN 2.3 g/dl (3.4-5.0); MAGNESIUM 1.8 mg/dL (1.8-2.4)
[2022-08-02 09:59] LABS: BILIRUBIN,TOTAL 0.4 mg/dL (0.2-1); CREATININE 0.3 mg/dL (0.55-1.3); PHOSPHOROUS 2.7 mg/dL (2.5-4.9); TOT PROT 6.2 g/dl (6.4-8.2)
[2022-08-02 15:07] LABS: STOOL PH 5.5 (7.0-7.5)
[2022-08-02 20:39] LABS: BASO % 1.8 % (0-2.0); EOS % 0.7 % (0-4.5); HEMATOCRIT 24.4 % (32.4-45.2); HEMOGLOBIN 8.2 GM/dL (10.7-15.3); LYMPH % 35.6 % (8-40); MCH 29.4 pg (25.7-33.7); MCHC 33.4 g/dl (32.0-36.0); MEAN CELL VOLUME 88.1 fl (80-96); MEAN PLT VOLUME 7.8 fl (7.5-11.1); MONO % 12.5 % (3.8-10.2); NEUT % 49.4 % (42.8-82.8); PLATELET COUNT 365 10^3/uL (134-434); RBC 2.78 M/mm3 (3.60-5.2); RDW 22.9 % (11.6-15.6); WHITE BLOOD COUNT 5.9 K/mm3 (4.0-10.0)
[2022-08-02 20:56] LABS: ALBUMIN 2.4 g/dl (3.4-5.0); BLOOD UREA NITROGEN 9.1 mg/dL (7-18); CALCIUM 8.6 mg/dL (8.5-10.1); MAGNESIUM 1.6 mg/dL (1.8-2.4)
[2022-08-02 20:59] LABS: CREATININE 0.3 mg/dL (0.55-1.3); PHOSPHOROUS 2.1 mg/dL (2.5-4.9)
[2022-08-02 21:01] LABS: BILIRUBIN,TOTAL 0.3 mg/dL (0.2-1)
[2022-08-02] MEDS: SERTRALINE HCL 50 MG TABLET (FP) PO SCH (22:50)
[2022-08-03] MEDS ORDERED: MAGNESIUM OXIDE 400 MG TABLET (FP) PO ONE (01:18)
[2022-08-03] MEDS ORDERED: NAPH,MB-DB/K PH,MBDB POWDER PACKET PO ONE ×2 (01:22)
[2022-08-03] MEDS: BANATROL PLUS POWDER PACKET PO SCH ×3 (06:01→22:41)
[2022-08-03] MEDS: INSULIN SLIDING SCALE (NOVOLOG) 1 VIAL SQ SCH ×4 (06:36→22:46)
[2022-08-03 09:27] LABS: BASO % 1.5 % (0-2.0); EOS % 0.8 % (0-4.5); HEMATOCRIT 25.1 % (32.4-45.2); HEMOGLOBIN 8.4 GM/dL (10.7-15.3); LYMPH % 35.3 % (8-40); MCH 29.4 pg (25.7-33.7); MCHC 33.3 g/dl (32.0-36.0); MEAN CELL VOLUME 88.2 fl (80-96); MEAN PLT VOLUME 7.4 fl (7.5-11.1); MONO % 10.7 % (3.8-10.2); NEUT % 51.7 % (42.8-82.8); PLATELET COUNT 375 10^3/uL (134-434); RBC 2.85 M/mm3 (3.60-5.2); RDW 23.1 % (11.6-15.6); WHITE BLOOD COUNT 5.4 K/mm3 (4.0-10.0)
[2022-08-03 09:49] LABS: ALBUMIN 2.4 g/dl (3.4-5.0); BLOOD UREA NITROGEN 6.7 mg/dL (7-18); CALCIUM 9.2 mg/dL (8.5-10.1); MAGNESIUM 1.6 mg/dL (1.8-2.4)
[2022-08-03] MEDS: NICOTINE 7 MG/24 HOURS TOPICAL PATCH TD SCH ×2 (09:50→09:59)
[2022-08-03] MEDS: MIRTAZAPINE 15 MG TABLET (FP) PO SCH (09:51)
[2022-08-03] MEDS: THIAMINE HCL 100 MG TABLET (FP) PO SCH (09:51)
[2022-08-03] MEDS: FOLIC ACID 1 MG TABLET (FP) PO SCH (09:51)
[2022-08-03] MEDS: MULTIVITAMINS (DAILY MVI) TABLET (FP) PO SCH (09:51)
[2022-08-03] MEDS: levETIRAcetam 500 MG TABLET (FP) PO SCH ×2 (09:51→22:40)
[2022-08-03 09:52] LABS: CREATININE 0.3 mg/dL (0.55-1.3); PHOSPHOROUS 3.7 mg/dL (2.5-4.9)
[2022-08-03 09:54] LABS: BILIRUBIN,TOTAL 0.5 mg/dL (0.2-1)
[2022-08-03] MEDS ORDERED: POTASSIUM PHOSPHATE 15 MM in SODIUM CHLORIDE 250 ML IVPB ONE (11:24)
[2022-08-03] MEDS ORDERED: MAGNESIUM SULF 50% (8.12 MEQ/2 ML-1 GM VIAL) IVPB ONE ×3 (11:24→16:00)
[2022-08-03] MEDS: MAGNESIUM SULF 50% (8.12 MEQ/2 ML-1 GM VIAL) IVPB ONE ×2 (13:38→13:39)
[2022-08-03 22:01] LABS: BASO % 1.7 % (0-2.0); EOS % 0.9 % (0-4.5); HEMATOCRIT 24.5 % (32.4-45.2); LYMPH % 29.8 % (8-40); MCH 28.7 pg (25.7-33.7); MCHC 32.7 g/dl (32.0-36.0); MEAN CELL VOLUME 87.6 fl (80-96); MEAN PLT VOLUME 7.3 fl (7.5-11.1); MONO % 12.4 % (3.8-10.2); NEUT % 55.2 % (42.8-82.8); PLATELET COUNT 364 10^3/uL (134-434); RDW 23.1 % (11.6-15.6); WHITE BLOOD COUNT 5.3 K/mm3 (4.0-10.0)
[2022-08-03 22:23] LABS: CALCIUM 8.5 mg/dL (8.5-10.1)
[2022-08-03 22:24] LABS: ALBUMIN 2.4 g/dl (3.4-5.0); MAGNESIUM 2.4 mg/dL (1.8-2.4)
[2022-08-03 22:27] LABS: CREATININE 0.3 mg/dL (0.55-1.3); PHOSPHOROUS 4.4 mg/dL (2.5-4.9)
[2022-08-03 22:28] LABS: TOT PROT 5.8 g/dl (6.4-8.2)
[2022-08-03 22:29] LABS: BILIRUBIN,TOTAL 0.3 mg/dL (0.2-1)
[2022-08-03] MEDS: SERTRALINE HCL 50 MG TABLET (FP) PO SCH (22:40)
[2022-08-04] MEDS: BANATROL PLUS POWDER PACKET PO SCH ×3 (06:12→22:26)
[2022-08-04] MEDS: INSULIN SLIDING SCALE (NOVOLOG) 1 VIAL SQ SCH ×4 (06:13→22:33)
[2022-08-04 09:31] LABS: HEMATOCRIT 24.8 % (32.4-45.2); MCH 28.6 pg (25.7-33.7); MCHC 32.3 g/dl (32.0-36.0); MEAN CELL VOLUME 88.7 fl (80-96); MEAN PLT VOLUME 7.8 fl (7.5-11.1); PLATELET COUNT 386 10^3/uL (134-434); RDW 22.8 % (11.6-15.6); WHITE BLOOD COUNT 5.4 K/mm3 (4.0-10.0)
[2022-08-04 09:49] LABS: CALCIUM 8.6 mg/dL (8.5-10.1)
[2022-08-04 09:50] LABS: ALBUMIN 2.4 g/dl (3.4-5.0); BLOOD UREA NITROGEN 5.7 mg/dL (7-18); MAGNESIUM 1.9 mg/dL (1.8-2.4)
[2022-08-04] MEDS: levETIRAcetam 500 MG TABLET (FP) PO SCH ×2 (09:51→22:26)
[2022-08-04] MEDS: MULTIVITAMINS (DAILY MVI) TABLET (FP) PO SCH (09:51)
[2022-08-04] MEDS: MIRTAZAPINE 15 MG TABLET (FP) PO SCH (09:51)
[2022-08-04] MEDS: FOLIC ACID 1 MG TABLET (FP) PO SCH (09:51)
[2022-08-04] MEDS: THIAMINE HCL 100 MG TABLET (FP) PO SCH (09:51)
[2022-08-04] MEDS: NICOTINE 7 MG/24 HOURS TOPICAL PATCH TD SCH (09:51)
[2022-08-04 09:53] LABS: CREATININE 0.4 mg/dL (0.55-1.3); PHOSPHOROUS 3.7 mg/dL (2.5-4.9)
[2022-08-04 09:54] LABS: BILIRUBIN,TOTAL 0.5 mg/dL (0.2-1)
[2022-08-04 10:55] LABS: ANISOCYTOSIS 3+; MACROCYTOSIS 0; OVALOCYTE 1+
[2022-08-04] MEDS: SERTRALINE HCL 50 MG TABLET (FP) PO SCH (22:26)
[2022-08-05] MEDS ORDERED: MAGNESIUM SULF 50% (8.12 MEQ/2 ML-1 GM VIAL) IVPB ONE (05:01)
[2022-08-05] MEDS: BANATROL PLUS POWDER PACKET PO SCH ×3 (05:38→22:10)
[2022-08-05] MEDS: INSULIN SLIDING SCALE (NOVOLOG) 1 VIAL SQ SCH ×4 (06:03→22:35)
[2022-08-05 07:36] LABS: BLOOD UREA NITROGEN 3.8 mg/dL (7-18); CALCIUM 8.9 mg/dL (8.5-10.1)
[2022-08-05 07:37] LABS: ALBUMIN 2.3 g/dl (3.4-5.0)
[2022-08-05 07:40] LABS: CREATININE 0.4 mg/dL (0.55-1.3); PHOSPHOROUS 3.6 mg/dL (2.5-4.9)
[2022-08-05 07:41] LABS: BILIRUBIN,TOTAL 0.3 mg/dL (0.2-1); TOT PROT 6.1 g/dl (6.4-8.2)
[2022-08-05 07:48] LABS: EOS % 0.9 % (0-4.5); HEMATOCRIT 25.8 % (32.4-45.2); HEMOGLOBIN 8.4 GM/dL (10.7-15.3); LYMPH % 23.8 % (8-40); MCH 29.5 pg (25.7-33.7); MCHC 32.7 g/dl (32.0-36.0); MEAN CELL VOLUME 90.3 fl (80-96); MEAN PLT VOLUME 7.6 fl (7.5-11.1); MONO % 9.6 % (3.8-10.2); NEUT % 63.7 % (42.8-82.8); PLATELET COUNT 390 10^3/uL (134-434); RBC 2.86 M/mm3 (3.60-5.2); RDW 21.9 % (11.6-15.6); WHITE BLOOD COUNT 4.8 K/mm3 (4.0-10.0)
[2022-08-05] MEDS ORDERED: POTASSIUM CHLORIDE TABS 20 MEQ TABLET.ER (FP) PO ONE (09:15)
[2022-08-05 09:29] LABS: ANISOCYTOSIS 2+; MACROCYTOSIS 1+; OVALOCYTE 1+
[2022-08-05] MEDS: MIRTAZAPINE 15 MG TABLET (FP) PO SCH (09:51)
[2022-08-05] MEDS: NICOTINE 7 MG/24 HOURS TOPICAL PATCH TD SCH (09:51)
[2022-08-05] MEDS: THIAMINE HCL 100 MG TABLET (FP) PO SCH (09:51)
[2022-08-05] MEDS: MULTIVITAMINS (DAILY MVI) TABLET (FP) PO SCH (09:51)
[2022-08-05] MEDS: FOLIC ACID 1 MG TABLET (FP) PO SCH (09:52)
[2022-08-05] MEDS: levETIRAcetam 500 MG TABLET (FP) PO SCH ×2 (09:52→22:10)
[2022-08-05] MEDS: SERTRALINE HCL 50 MG TABLET (FP) PO SCH (22:11)
[2022-08-06] MEDS: BANATROL PLUS POWDER PACKET PO SCH ×3 (06:09→22:30)
[2022-08-06] MEDS: INSULIN SLIDING SCALE (NOVOLOG) 1 VIAL SQ SCH ×4 (06:09→22:30)
[2022-08-06 08:52] LABS: BASO % 1.6 % (0-2.0); HEMATOCRIT 25.9 % (32.4-45.2); HEMOGLOBIN 8.8 GM/dL (10.7-15.3); LYMPH % 27.1 % (8-40); MCH 30.2 pg (25.7-33.7); MEAN CELL VOLUME 88.8 fl (80-96); MEAN PLT VOLUME 7.4 fl (7.5-11.1); MONO % 10.1 % (3.8-10.2); NEUT % 60.2 % (42.8-82.8); PLATELET COUNT 387 10^3/uL (134-434); RBC 2.92 M/mm3 (3.60-5.2); RDW 21.8 % (11.6-15.6); WHITE BLOOD COUNT 5.6 K/mm3 (4.0-10.0)
[2022-08-06 09:10] LABS: ALBUMIN 2.5 g/dl (3.4-5.0); MAGNESIUM 1.5 mg/dL (1.8-2.4)
[2022-08-06 09:13] LABS: CREATININE 0.4 mg/dL (0.55-1.3); PHOSPHOROUS 3.8 mg/dL (2.5-4.9)
[2022-08-06 09:15] LABS: BILIRUBIN,TOTAL 0.4 mg/dL (0.2-1); TOT PROT 6.2 g/dl (6.4-8.2)
[2022-08-06] MEDS: MULTIVITAMINS (DAILY MVI) TABLET (FP) PO SCH (09:49)
[2022-08-06] MEDS: MIRTAZAPINE 15 MG TABLET (FP) PO SCH (09:49)
[2022-08-06] MEDS: THIAMINE HCL 100 MG TABLET (FP) PO SCH (09:49)
[2022-08-06] MEDS: FOLIC ACID 1 MG TABLET (FP) PO SCH (09:49)
[2022-08-06] MEDS: levETIRAcetam 500 MG TABLET (FP) PO SCH ×2 (09:49→22:30)
[2022-08-06] MEDS: NICOTINE 7 MG/24 HOURS TOPICAL PATCH TD SCH (09:51)
[2022-08-06] MEDS ORDERED: MAGNESIUM SULF 50% (8.12 MEQ/2 ML-1 GM VIAL) IVPB ONE (14:38)
[2022-08-06] MEDS: SERTRALINE HCL 50 MG TABLET (FP) PO SCH (22:30)
[2022-08-07] MEDS: BANATROL PLUS POWDER PACKET PO SCH ×3 (05:36→21:17)
[2022-08-07] MEDS: INSULIN SLIDING SCALE (NOVOLOG) 1 VIAL SQ SCH ×3 (06:02→16:08)
[2022-08-07 08:14] LABS: BASO % 1.1 % (0-2.0); EOS % 0.8 % (0-4.5); HEMATOCRIT 26.2 % (32.4-45.2); HEMOGLOBIN 8.5 GM/dL (10.7-15.3); LYMPH % 27.3 % (8-40); MCH 28.8 pg (25.7-33.7); MCHC 32.5 g/dl (32.0-36.0); MEAN CELL VOLUME 88.4 fl (80-96); MEAN PLT VOLUME 7.4 fl (7.5-11.1); MONO % 8.6 % (3.8-10.2); NEUT % 62.2 % (42.8-82.8); PLATELET COUNT 409 10^3/uL (134-434); RBC 2.97 M/mm3 (3.60-5.2); RDW 21.5 % (11.6-15.6)
[2022-08-07 08:38] LABS: ALBUMIN 2.5 g/dl (3.4-5.0); BLOOD UREA NITROGEN 5.4 mg/dL (7-18); CALCIUM 9.1 mg/dL (8.5-10.1); MAGNESIUM 1.6 mg/dL (1.8-2.4)
[2022-08-07 08:42] LABS: BILIRUBIN,TOTAL 0.4 mg/dL (0.2-1); CREATININE 0.4 mg/dL (0.55-1.3); PHOSPHOROUS 3.7 mg/dL (2.5-4.9)
[2022-08-07 08:44] LABS: TOT PROT 6.2 g/dl (6.4-8.2)
[2022-08-07] MEDS ORDERED: MAGNESIUM SULF 50% (8.12 MEQ/2 ML-1 GM VIAL) IVPB ONE (09:09)
[2022-08-07] MEDS: FOLIC ACID 1 MG TABLET (FP) PO SCH (09:47)
[2022-08-07] MEDS: levETIRAcetam 500 MG TABLET (FP) PO SCH ×2 (09:47→21:17)
[2022-08-07] MEDS: MIRTAZAPINE 15 MG TABLET (FP) PO SCH (09:47)
[2022-08-07] MEDS: THIAMINE HCL 100 MG TABLET (FP) PO SCH (09:47)
[2022-08-07] MEDS: MULTIVITAMINS (DAILY MVI) TABLET (FP) PO SCH (09:47)
[2022-08-07] MEDS: NICOTINE 7 MG/24 HOURS TOPICAL PATCH TD SCH (09:48)
[2022-08-07] MEDS ORDERED: ACETAMINOPHEN 325 MG TABLET (FP) PO PRN (17:02)
[2022-08-07] MEDS: SERTRALINE HCL 50 MG TABLET (FP) PO SCH (21:17)
[2022-08-08 04:42] VITALS: RESP 20
[2022-08-08] MEDS: BANATROL PLUS POWDER PACKET PO SCH ×2 (05:51→13:57)
[2022-08-08 09:16] LABS: BASO % 1.6 % (0-2.0); EOS % 0.8 % (0-4.5); HEMATOCRIT 24.3 % (32.4-45.2); HEMOGLOBIN 8.1 GM/dL (10.7-15.3); LYMPH % 25.6 % (8-40); MCH 29.4 pg (25.7-33.7); MCHC 33.2 g/dl (32.0-36.0); MEAN CELL VOLUME 88.5 fl (80-96); MEAN PLT VOLUME 7.7 fl (7.5-11.1); MONO % 10.3 % (3.8-10.2); NEUT % 61.7 % (42.8-82.8); PLATELET COUNT 400 10^3/uL (134-434); RBC 2.75 M/mm3 (3.60-5.2); RDW 20.4 % (11.6-15.6); WHITE BLOOD COUNT 6.2 K/mm3 (4.0-10.0)
[2022-08-08 09:47] LABS: ALBUMIN 2.4 g/dl (3.4-5.0); BLOOD UREA NITROGEN 8.8 mg/dL (7-18); MAGNESIUM 1.6 mg/dL (1.8-2.4)
[2022-08-08] MEDS: MIRTAZAPINE 15 MG TABLET (FP) PO SCH (09:47)
[2022-08-08] MEDS: MULTIVITAMINS (DAILY MVI) TABLET (FP) PO SCH (09:47)
[2022-08-08] MEDS: FOLIC ACID 1 MG TABLET (FP) PO SCH (09:47)
[2022-08-08] MEDS: levETIRAcetam 500 MG TABLET (FP) PO SCH (09:47)
[2022-08-08] MEDS: THIAMINE HCL 100 MG TABLET (FP) PO SCH (09:48)
[2022-08-08] MEDS: NICOTINE 7 MG/24 HOURS TOPICAL PATCH TD SCH (09:48)
[2022-08-08 09:50] LABS: CREATININE 0.4 mg/dL (0.55-1.3); PHOSPHOROUS 3.9 mg/dL (2.5-4.9)
[2022-08-08 09:52] LABS: BILIRUBIN,TOTAL 0.3 mg/dL (0.2-1); TOT PROT 5.9 g/dl (6.4-8.2)
[2022-08-08] MEDS: MAGNESIUM SULF 50% (8.12 MEQ/2 ML-1 GM VIAL) IVPB SCH ×2 (11:53→13:57)
[2022-08-08 13:09] VITALS: TEMP 98.8
[2022-08-08 15:14] VITALS: BP 106/68; PULSE 99
== END 2022-08-08 16:50 | disposition home or self-care (01) | DRG 640 ==
LOC: JER 14:55 → JERBED 18:54 → J7W 07-23 01:58
PROVIDERS: ADMIT Internal Medicine; ATTEND Internal Medicine
PROC: 30233N1 Transfusion of Nonautologous Red Blood Cells into Peripheral Vein, Percutaneous Approach (ICD-10-PCS; principal; 2022-07-23)
DX: E51.2 Wernicke's encephalopathy (principal); E43 Unspecified severe protein-calorie malnutrition; Z68.1 Body mass index [BMI] 19.9 or less, adult; F10.239 Alcohol dependence with withdrawal, unspecified; D50.9 Iron deficiency anemia, unspecified; G40.909 Epilepsy, unspecified, not intractable, without status epilepticus; F17.220 Nicotine dependence, chewing tobacco, uncomplicated; R26.0 Ataxic gait; E87.8 Other disorders of electrolyte and fluid balance, not elsewhere classified; E87.6 Hypokalemia; E83.42 Hypomagnesemia; F32.A Depression, unspecified; R62.7 Adult failure to thrive; E83.39 Other disorders of phosphorus metabolism; R19.7 Diarrhea, unspecified; K64.8 Other hemorrhoids
CPT/HCPCS: 36415; 36430; 70450-TC; 70551-TC; 71046-TC-FY; 73560-TC-LT-FY; 74176-TC; 80048; 80053; 80076; 81003; 82140; 82272; 82607; 82710; 82728; 82803; 82962; 83010; 83540; 83550; 83735; 83986; 84100; 84300; 84443; 84466; 84484; 84703; 85025; 85027; 85045; 85610; 85730; 86850; 86900; 86901; 86922; 87045; 87046; 87086; 87205; 87324; 87449; 93005; 93010; 97116-GP; 99285-25; C9803-CS; J1756; P9058; U0003; U0005